=== PATIENT | female | born 1955 | race Caucasian/White ===

== ENCOUNTER 2016-11-12 10:35 | Outpatient (CLI) | payer MEDICARE, OTHER ==
[2013-03-24 01:58] VITALS: BP 169/90
--- NOTE | 2016-11-12 17:23 | Diagnostic Imaging Report ---
[facility] [address] [facility].[address] [address] Report Submission Date: Nov 12, 2016 11:59:59 AM CDT Patient Study Name: RINA HANSEN Date: Nov 12, 2016 10:52:22 AM CDT Modality Type: US Gender: F Description: DPLX SCN XTRCRAN ART CMP ROSALINDA : 57 Institution: [facility] Physician: SCOT CASTANON ([employer]) - OP Examination: Carotid artery ultrasound History: Bruit Comparison exams: None available Findings: Right carotid: Common carotid artery peak systolic velocity 112.2 cm/s; end diastolic velocity 26.3 cm/s. Internal carotid artery peak systolic velocity 131.9 cm/s; end diastolic velocity 44.6 cm/s. External carotid artery velocity to 97.1 cm/s. Vertebral artery velocity 38.9 cm/s Vertebral flow antegrade. Normal waveforms. No occlusive plaquing. Left carotid: Common carotid artery peak systolic velocity 95.9 cm/s; end diastolic velocity 23.9 cm/s. Internal carotid artery peak systolic velocity 106.5 cm/s; end diastolic velocity 35.4 cm/s. External carotid artery velocity to 93.3 cm/s. Vertebral artery velocity 66.8 cm/s Vertebral flow antegrade. Normal waveforms. No occlusive plaquing. Right ICA/CCA Ratio: 1.2 Left ICA/CCA Ratio 1.1 Impression: Carotids ratios less than 1.8 bilaterally. No restriction to hemodynamic flow. Electronically signed on Nov 12, 2016 11:59:59 AM CDT by: Terence GRAY
== END 2016-11-12 12:34 ==
LOC: RAD 10:35
PROVIDERS: ATTEND Nurse Practitioner Family
DX: I63.9 Cerebral infarction, unspecified (principal); E10.8 Type 1 diabetes mellitus with unspecified complications; R09.89 Other specified symptoms and signs involving the circulatory and respiratory systems
CPT/HCPCS: 93880

== ENCOUNTER 2016-11-12 12:48 | Outpatient (CLI) | payer MEDICARE, OTHER ==
[2013-03-24 01:58] VITALS: BP 169/90
== END 2016-11-12 12:55 | disposition home or self-care (01) ==
LOC: CARD 12:48
PROVIDERS: ATTEND Internal Medicine Cardiovascular Disease
DX: I25.10 Atherosclerotic heart disease of native coronary artery without angina pectoris (principal); I10 Essential (primary) hypertension
CPT/HCPCS: G0463

== ENCOUNTER 2016-11-12 12:53 | Outpatient (CLI) | payer MEDICARE, OTHER ==
[2013-03-24 01:58] VITALS: BP 169/90
== END 2016-11-12 12:58 | disposition home or self-care (01) ==
LOC: NEPHRO 12:53
PROVIDERS: ATTEND Internal Medicine Nephrology
DX: N17.9 Acute kidney failure, unspecified (principal); I10 Essential (primary) hypertension; N18.9 Chronic kidney disease, unspecified
CPT/HCPCS: G0463

== ENCOUNTER 2017-07-15 13:54 | Outpatient (CLI) | payer MEDICARE, OTHER ==
[2013-03-24 01:58] VITALS: BP 169/90
== END 2017-07-15 13:55 ==
LOC: CARD 13:54
PROVIDERS: ATTEND Internal Medicine Cardiovascular Disease
DX: I25.10 Atherosclerotic heart disease of native coronary artery without angina pectoris (principal); I50.9 Heart failure, unspecified; I35.0 Nonrheumatic aortic (valve) stenosis; I73.9 Peripheral vascular disease, unspecified; E78.5 Hyperlipidemia, unspecified; E11.9 Type 2 diabetes mellitus without complications; I10 Essential (primary) hypertension; Z72.0 Tobacco use; N18.3 Chronic kidney disease, stage 3 (moderate)
CPT/HCPCS: 99213

== ENCOUNTER 2017-07-22 15:40 | Outpatient (CLI) | payer MEDICARE, OTHER ==
[2013-03-24 01:58] VITALS: BP 169/90
== END 2017-07-22 15:42 ==
LOC: NEPHRO 15:40
PROVIDERS: ATTEND Internal Medicine Nephrology
DX: I10 Essential (primary) hypertension (principal); N17.9 Acute kidney failure, unspecified; N18.9 Chronic kidney disease, unspecified; I50.9 Heart failure, unspecified; I25.10 Atherosclerotic heart disease of native coronary artery without angina pectoris; I35.1 Nonrheumatic aortic (valve) insufficiency
CPT/HCPCS: G0463

== ENCOUNTER 2017-09-16 13:52 | Outpatient (CLI) | payer MEDICARE, OTHER ==
[2013-03-24 01:58] VITALS: BP 169/90
== END 2017-09-16 13:53 ==
LOC: NEPHRO 13:52
PROVIDERS: ATTEND Internal Medicine Nephrology
DX: I50.9 Heart failure, unspecified (principal); N17.9 Acute kidney failure, unspecified; I42.9 Cardiomyopathy, unspecified
CPT/HCPCS: G0463

== ENCOUNTER 2017-10-03 15:55 | Emergency (ER) | payer MEDICARE, OTHER ==
[2017-10-03] MEDS ORDERED: IPRATROPIUM/ALBUTEROL SULFATE 3 ML AMPUL.NEB NEB ONE ×2 (16:03→16:04)
[2017-10-03] MEDS ORDERED: BUDESONIDE 0.5MG/2ML AMPUL.NEB NEB ONE (16:03)
[2017-10-03] MEDS ORDERED: methylPREDNISolone SOD SUCC 125 MG/2 ML VIAL IVP ONE (16:03)
[2017-10-03] MEDS ORDERED: 0.9 % SODIUM CHLORIDE 500 ML IV ONE (16:03)
[2017-10-03] MEDS ORDERED: INSULIN REGULAR, HUMAN 100 UNIT/ML 3ML VIAL IV ONE (16:05)
[2017-10-03 16:12] LABS: BASOPHILS % 0.5 (0.0-1.5); MEAN CORPUSCULAR HEMOGLOBIN 26.4 pg (28.0-34.0); MEAN CORPUSCULAR VOLUME 89.7 fl (80.0-100.0)
[2017-10-03] MEDS ORDERED: ONDANSETRON HCL/PF 4 MG/ 2ML VIAL IVP ONE (16:15)
[2017-10-03] MEDS ORDERED: FUROSEMIDE 20 MG/2 ML VIAL IVP ONE (16:15)
[2017-10-03] MEDS ORDERED: FUROSEMIDE 20 MG/2 ML VIAL ONE (16:16)
[2017-10-03] MEDS ORDERED: FUROSEMIDE 40 MG/4 ML VIAL ONE (16:16)
[2017-10-03 16:29] LABS: eGFR (African) 23; eGFR (Non-African) 19
[2017-10-03] MEDS ORDERED: 0.9 % SODIUM CHLORIDE 1,000 ML IV SCH ×2 (16:30)
[2017-10-03] MEDS ORDERED: BUDESONIDE 0.5MG/2ML AMPUL.NEB NEB SCH (17:00)
--- NOTE | 2017-10-03 17:43 | ED Physician Documentation ---
Dyspnea - HISTORIAN Historian: patient, child - HPI Stated Complaint: diff breathing Chief Complaint: Dyspnea Additional Information: soa x 2 days, worse today Onset: days ago (2) Duration: worse Initiating Event: other (spontaneous) Severity: severe Exacerbated By: laying flat Associated Symptoms: sweating, productive cough Further Comments: no - ROS CONST: other (just out of hosp at [place] for CHF) EYES/ENT: none GI/: vomiting MS/SKIN/LYMPH: none - PAST HX Lung Disease: COPD Cardiac Disease: CHF, CAD PE Risk Factors: hypertension, leg swelling Surgeries/Procedures: cardiac bypass Other History: diabetes Type 2, hyperlipidemia, kidney failure Immunizations: referred to PCP Allergies/Adverse Reactions: Allergies Allergy/AdvReac Type Severity Reaction Status Date / Time No Allergy Information Allergy Verified 10/03/17 16:08 Available Home Medications: Ambulatory Orders Medication Instructions Recorded Buspirone HCl [Buspar] 03/24/13 Citalopram Hydrobromide 03/24/13 [Citalopram HBr] Clopidogrel Bisulfate [Plavix] 03/24/13 Ferrous Sulfate [Ferrous Sulfate] 03/24/13 Gabapentin [Neurontin] 03/24/13 Lisinopril [Lisinopril] 03/24/13 Metformin HCl ER [Glucophage XR] 03/24/13 Metoprolol Succinate [Toprol XL] 03/24/13 Simvastatin [Zocor] 03/24/13 - SOCIAL HX Smoking History: cigarettes Alcohol Use: none Drug Use: marijuana - FAMILY HX Family History: no significant history - VITAL SIGNS Vital Signs: Vital Signs Temp Pulse Resp BP Pulse Ox 98.7 F 111 H 36 H 173/109 75 L 10/03/17 15:55 10/03/17 15:55 10/03/17 15:55 10/03/17 15:55 10/03/17 15:55 - REVIEWED ASSESSMENTS Nursing Assessment Reviewed: Yes Vitals Reviewed: Yes Progress - Results/Orders Results/Orders: cbc, cmp, ua, trop, bnp, cxr, ekg ordered - Progress Progress: Pt. given 0.5 mg Pulmicort, Duoneb nebulizer treatments in ER with 6 then down to 3 liters O2 NC, 60 mg Lasix IVP and 125 mg Solu Medrol IVP in ER. Critical Care Note - Critical Care Note Total Time (mins): 30 ED Results Lab/Radiology - Lab Results Lab Results: Lab Results 10/03/17 10/03/17 10/03/17 16:10 16:10 16:10 WBC RBC Hgb Hct MCV MCH MCHC RDW Plt Count Neut % (Auto) Lymph % (Auto) Mills % (Auto) Eos % (Auto) Baso % (Auto) Neut # (Auto) Lymph # (Auto) Mills # (Auto) Eos # (Auto) Baso # (Auto) Reactive Lymphs % Reactive Lymphs # PT 11.1 Seconds Seconds (9.4-11.6) INR 1.06 (0.9-1.2) APTT 22.1 Seconds L Seconds (24.5-32.8) Sodium 143 mmol/L mmol/L (136-145) Potassium 5.1 mmol/L mmol/L (3.5-5.1) Chloride 113 mmol/L H mmol/L (98-107) Carbon Dioxide 16 mmol/L L mmol/L (22-30) BUN 36 mg/dL H mg/dL (7-17) Creatinine 2.70 mg/dL H mg/dL (0.52-1.04) Est GFR ( Amer) 23 L (60 - ) Est GFR (Non-Af Amer) 19 L (60 - ) Glucose 398 mg/dL H mg/dL (74-106) Lactate 3.8 U/L H U/L (0.7-2.1) Calcium 8.3 mg/dL L mg/dL (8.4-10.2) Total Bilirubin 0.8 mg/dL mg/dL (0.2-1.3) AST 29 U/L U/L (15-46) ALT 35 U/L U/L (13-69) Alkaline Phosphatase 157 U/L H U/L (38-126) Troponin I < 0.03 ng/mL L ng/mL (0.03-0.06) NT-Pro-B Natriuret Pep > 65674.0 pg/mL H pg/mL (15.0-125.0) Total Protein 6.6 g/dL g/dL (6.3-8.2) Albumin 3.3 g/dL L g/dL (3.5-5.0) 10/03/17 16:10 WBC 14.50 K/ul H K/ul (4.00-12.00) RBC 3.17 M/ul L M/ul (3.90-5.20) Hgb 8.4 g/dL L g/dL (12.0-16.0) Hct 28.4 % L % (34.5-46.5) MCV 89.7 fl fl (80.0-100.0) MCH 26.4 pg L pg (28.0-34.0) MCHC 29.5 g/dL L g/dL (30.0-36.0) RDW 15.4 % H % (11.3-14.3) Plt Count 508 K/mm3 H K/mm3 (130-400) Neut % (Auto) 82.9 % H % (39.0-79.0) Lymph % (Auto) 11.3 % L % (16.0-50.0) Mills % (Auto) 2.0 % % (0.0-11.0) Eos % (Auto) 3.0 % % (0.0-6.8) Baso % (Auto) 0.5 (0.0-1.5) Neut # (Auto) 12.0 # k/uL H # k/uL (1.4-7.7) Lymph # (Auto) 1.6 # k/uL # k/uL (0.6-4.0) Mills # (Auto) 0.3 # k/uL # k/uL (0.0-0.9) Eos # (Auto) 0.4 # k/uL # k/uL (0.0-0.6) Baso # (Auto) 0.1 # k/uL # k/uL (0.0-0.5) Reactive Lymphs % 0.4 % % (0.0-5.0) Reactive Lymphs # 0.1 # k/uL # k/uL (0.0-0.8) PT INR APTT Sodium Potassium Chloride Carbon Dioxide BUN Creatinine Est GFR ( Amer) Est GFR (Non-Af Amer) Glucose Lactate Calcium Total Bilirubin AST ALT Alkaline Phosphatase Troponin I NT-Pro-B Natriuret Pep Total Protein Albumin - Radiology Radiology Impressions: bilateral infiltrates of congestive failure - Orders Orders: ED Orders Category Date Time Status Place IV Lock 1T Care 10/03/17 16:03 Active CHEST 1VIEW [RAD] Routine Exams 10/03/17 Taken ABG WITH COOX Routine Lab 10/03/17 16:07 Ordered BLOOD CULTURE Routine Lab 10/03/17 17:20 Received CBC/PLATELET/DIFF Routine Lab 10/03/17 16:10 Completed CMP Routine Lab 10/03/17 16:10 Completed LACTATE Routine Lab 10/03/17 16:10 Completed NT-proBNP Routine Lab 10/03/17 16:10 Completed PT-INR Routine Lab 10/03/17 16:10 Completed PTT Routine Lab 10/03/17 16:10 Completed TROPONIN I (cTnI) Routine Lab 10/03/17 16:10 Completed URINALYSIS Routine Lab 10/03/17 16:03 Ordered 0.9 % Sodium Chloride [Normal Saline] 1,000 ml Med 10/03/17 16:30 Ordered IV .Q1H 0.9 % Sodium Chloride [Normal Saline] 1,000 ml Med 10/03/17 16:30 Ordered IV Q24H 0.9 % Sodium Chloride [Normal Saline] 500 ml Med 10/03/17 16:03 Discontinued IV NOW Budesonide [Pulmicort] Med 10/03/17 16:03 Discontinued 0.5 mg NEB .STK-MED ONE Budesonide [Pulmicort] Med 10/03/17 17:00 Ordered 0.5 mg NEB BID Furosemide [Lasix] Med 10/03/17 16:16 Discontinued 20 mg .ROUTE .STK-MED ONE Furosemide [Lasix] Med 10/03/17 16:16 Discontinued 40 mg .ROUTE .STK-MED ONE Furosemide [Lasix] Med 10/03/17 16:15 Discontinued 60 mg IVP NOW ONE Insulin Regular, Human [Humulin R] Med 10/03/17 16:05 Discontinued 15 unit IV NOW ONE Ipratropium/Albuterol Sulfate [Duoneb] Med 10/03/17 16:04 Discontinued 3 ml NEB .STK-MED ONE Ipratropium/Albuterol Sulfate [Duoneb] Med 10/03/17 16:03 Discontinued 3 ml NEB NOW ONE Ondansetron HCl/Pf [Zofran 4 mg/2 ml] Med 10/03/17 16:15 Discontinued 8 mg IVP NOW ONE methylPREDNISolone SOD SUCC [Solu-MEDROL] Med 10/03/17 16:03 Discontinued 125 mg IVP NOW ONE Oxygen Daily Oxygen 10/03/17 16:15 Ordered EKG WITH COMPARISON Routine Ther 10/03/17 Ordered Dyspnea Physical Exam - EXAM General Appearance: alert, severe distress, hyperventilating EENT: eye inspection normal, ENT inspection normal, pharynx normal, no signs of dehydration, GEOVANI, no nystagmus, TM's nml Neck: nml inspection Respiratory: respiratory distress, prolonged expirations, retractions, accessory muscle use, decreased air movement, wheezes, rhonchi. No: stridor CVS: reg. rate & rhythm Abdomen: non-tender, no organomegaly, no distention, no ascites Skin: no rash Extremities: edema, other (cyanotic nailbeds on presentation, reversed with tx) Neuro/Psych: CN's nml as tested, motor nml, sensation nml, other (lethargic on presentation, alert after tx) Discharge Clincal Impression: Acute exacerbation of congestive heart failure Qualifiers: Heart failure type: systolic Qualified Code(s): I50.23 - Acute on chronic systolic (congestive) heart failure Referrals: Natalie Hobbs FNP [Primary Care Provider] - 2 Days Comments: Case discussed with [facility]. Dr. Ferrell accepts pt. in transfer. Transferred in stable condition via ground EMS. Condition: Stable Disposition: XFER SHT-TRM HOSP Decision to Admit: NO Decision Time: 17:43
--- NOTE | 2017-10-03 18:08 | Diagnostic Imaging Report ---
CAS GUADARRAMA [facility] [address] [facility].[address] [address] Report Submission Date: October 03, 2017 4:26:49 PM CDT Patient Study Name: RINA HANSEN Date: October 03, 2017 4:04:23 PM CDT Modality Type: DX Gender: F Description: CHEST : 57 Institution: [facility] Physician: CAS GUADARRAMA Ap portable upright radiographs of the chest Clinical history: Dyspnea Technique: anterior /posterior portable upright Findings: there is pulmonary vascular congestion and redistribution. Pulmonary edema and small pleural effusions are present. Findings ofmedian sternotomy and aortic atherosclerosis are noted. Impression: Congestive heart failure and pulmonary edema Electronically signed on October 03, 2017 4:26:49 PM CDT by: Aiden GRAY
[2017-10-03 18:56] VITALS: BP 182/75
[2017-10-05 03:54] LABS: APPEARANCE,URINE CLEAR (CLEAR); COLOR,URINE YELLOW (YELLOW); OCCULT BLOOD,URINE 1+ (NEGATIVE); PH URINE 5.5 (5.0 - 8.0); UROBILINOGEN URINE 0.2 Eu (0.2-1.0)
[2017-10-06 07:50] LABS: ABG PH 7.34 (7.35-7.45)
== END 2017-10-03 18:50 | disposition short-term general hospital (02) ==
LOC: ED 15:55
DX: I50.23 Acute on chronic systolic (congestive) heart failure (principal)
CPT/HCPCS: 36415; 71045; 80053; 81002; 83605; 83880; 84484; 85025; 85610; 85730; 87040; 93005; 94640; 96365; 96374; 96375; 99281; 99285; J1815; J1940; J2405; J2930; J7030; J7626; 96376; 99291; S1016

== ENCOUNTER 2017-10-07 14:56 | Outpatient (CLI) | payer MEDICARE, OTHER | END 2017-10-07 14:57 | LOC: NEPHRO 14:56 | PROVIDERS: ATTEND Internal Medicine Nephrology | DX: N18.9 Chronic kidney disease, unspecified (principal); I50.9 Heart failure, unspecified; N17.9 Acute kidney failure, unspecified; E11.9 Type 2 diabetes mellitus without complications | CPT/HCPCS: G0463 ==

== ENCOUNTER 2017-10-28 12:10 | Outpatient (CLI) | payer MEDICARE, OTHER | END 2017-10-28 12:12 | LOC: CARD 12:10 | PROVIDERS: ATTEND Internal Medicine Cardiovascular Disease | DX: I25.10 Atherosclerotic heart disease of native coronary artery without angina pectoris (principal); I50.9 Heart failure, unspecified; I63.9 Cerebral infarction, unspecified; I73.9 Peripheral vascular disease, unspecified; E78.5 Hyperlipidemia, unspecified; E11.9 Type 2 diabetes mellitus without complications; I10 Essential (primary) hypertension; Z72.0 Tobacco use; N18.4 Chronic kidney disease, stage 4 (severe) | CPT/HCPCS: G0463 ==

== ENCOUNTER 2017-11-21 10:45 | Outpatient (CLI) | payer MEDICARE, OTHER ==
[2017-11-21 11:25] LABS: BASOPHILS % 0.9 (0.0-1.5); EOSINOPHILS % 2.8 % (0.0-6.8); MEAN CORPUSCULAR HEMOGLOBIN 26.4 pg (28.0-34.0); MEAN CORPUSCULAR VOLUME 86.1 fl (80.0-100.0); MONOCYTES % 4.6 % (0.0-11.0); NEUTROPHILS # 5.6 # k/uL (1.4-7.7)
[2017-11-21 11:48] LABS: eGFR (African) 23; eGFR (Non-African) 19
== END 2017-11-21 10:46 ==
LOC: LAB 10:45
PROVIDERS: ATTEND Internal Medicine Nephrology
DX: R80.9 Proteinuria, unspecified (principal); N18.9 Chronic kidney disease, unspecified; I50.9 Heart failure, unspecified; N17.9 Acute kidney failure, unspecified; E11.9 Type 2 diabetes mellitus without complications
CPT/HCPCS: 36415; 80053; 83970; 85025